=== PATIENT | female | born 1990 | race American Indian/Alaskan Native ===

== ENCOUNTER 2024-12-25 17:11 | Emergency (ER) | payer MEDICAID, SELFPAY ==
[2024-12-25 17:35] VITALS: BP 121/75; PULSE 90; RESP 16; TEMP 36.4; O2SAT 96; BMI 30.7
--- NOTE | 2024-12-25 17:42 | EKG_ITS ---
[facility] Test Date: 2024-12-25 Pat Name: MILAGROS CLARK Department: Room: - Gender: Female Paper Rewinder: : 1990 Requested By: Dimitry Pfeiffer Order Number: [id number] Reading MD: Dimitry Pfeiffer Measurements Intervals [place] Rate: 89 P: 37 NC: 141 QRS: 48 QRSD: 81 T: 54 QT: 352 QTc: 431 Interpretive Statements SINUS RHYTHM No previous ECG available for comparison /store/S0/[id number]
--- NOTE | 2024-12-25 17:42 | XR_ITS ---
Examination: PA lateral chest 2 views TECHNIQUE: Upright PA and lateral chest 2 views Exam date and time: December 25, 2024 1903 hours INDICATIONS: Chest pain today. FINDINGS: Mild opacity in the right middle lobe noticed on the lateral view Normal heart size No pulmonary edema The osseous structures are intact IMPRESSION: Atelectasis versus pneumonia in the right middle lobe, the appearance should be clinically correlated
--- NOTE | 2024-12-25 17:43 | PD.EDRME ---
Rapid Medical Screening Exam RME Arrival date/time: 12/25/24 17:11 34-year-old female with no known medical history presents to the emergency room with a chief complaint of left-sided chest pain that radiates down her left arm and shoulder x 1 day I have greeted and performed a focused initial assessment of this patient. A comprehensive ED assessment and evaluation of the patient, analysis of all test results, and completion of the medical decision making process will be conducted by additional ED providers. Chief Complaint: Chest Pain Vital signs: Vital Signs Temperature 97.6 F 12/25/24 17:35 Pulse Rate 90 12/25/24 17:35 Respiratory Rate 16 12/25/24 17:35 Blood Pressure 121/75 12/25/24 17:35 Pulse Oximetry (%) 96 12/25/24 17:35 Oxygen Delivery Method Room Air 12/25/24 17:35 Vital signs reviewed by provider: Yes
[2024-12-25 18:27] LABS: Basophils # (Auto) 0.1 Thou/mm3 (0.0-0.2); Basophils % (Auto) 0 % (0-2.5); Eosinophils # (Auto) 0.1 Thou/mm3 (0.0-0.5); Eosinophils % (Auto) 1 % (0-10); Hematocrit 41.1 % (36.0-46.0); Hemoglobin 13.8 g/dL (12.0-16.0); Immature Granulocytes % (Auto) 0 % (0-0); Immature Granulocytes Auto 0.04 Thou/mm3 (0.00-0.00); Lymphocytes # (Auto) 2.8 Thou/mm3 (1.0-4.8); Lymphocytes % (Auto) 19 % (10-50); Mean Corpuscular HGB Conc 33.6 g/dl (31.0-37.0); Mean Corpuscular Hemoglobin 30.1 pg (25.0-35.0); Mean Corpuscular Volume 90 fL (80-100); Monocytes # (Auto) 0.8 Thou/mm3 (0.0-0.8); Monocytes % (Auto) 6 % (0-12); Neutrophils # (Auto) 10.7 Thou/mm3 (1.8-7.7); Neutrophils % (Auto) 74 % (37-80); Nucleated Red Blood Cell % 0 /100 WBC (0); Platelet Count 315 Thou/mm3 (140-440); RDW Standard Deviation 41.1 fL (36.4-46.3); Red Blood Count 4.58 Miln/mm3 (4.00-5.20); White Blood Count 14.4 Thou/mm3 (3.6-11.0)
[2024-12-25 18:41] LABS: INR 1.1 (0.9-1.3); Partial Thromboplastin Time 29.4 Seconds (22.0-36.0); Prothrombin Time 12.1 Seconds (9.0-12.2)
[2024-12-25 18:43] LABS: B-Type Natriuretic Peptide < 20 pg/mL (0-100)
[2024-12-25 18:45] LABS: Alanine Aminotransferase 25 U/L (10-49); Albumin, Serum 4.5 gm/dL (3.5-5.0); Albumin/Globulin Ratio 1.5 (1.2-2.2); Alkaline Phosphatase 90 U/L (46-116); Anion Gap 11 (7-16); Aspartate Amino Transferase 21 U/L (0-34); BUN/Creatinine Ratio 17 Ratio (12-20); Bilirubin,Total 0.5 mg/dL (0.3-1.2); Blood Urea Nitrogen 12 mg/dL (9-23); Calcium 9.8 mg/dL (8.3-10.6); Calcium (Corrected) 9.8 mg/dL (8.5-10.1); Carbon Dioxide 25.4 mMol/L (20.0-31.0); Chloride 109 mMol/L (98-107); Creatinine (Component) 0.7 mg/dL (0.6-1.3); Estimated Creatinine Clearance 125.2 mL/min (>60); Glucose 98 mg/dL (74-106); Magnesium 2.1 mg/dL (1.6-2.6); Osmolality,Calculated 288 (275-295); Potassium 3.7 mMol/L (3.4-5.1); Sodium 145 mMol/L (136-145); Total Protein 7.5 gm/dL (5.7-8.2); Troponin I < 0.002 ng/mL (0.0-0.045); eGFR > 60 See Note
--- NOTE | 2024-12-25 18:46 | PD.EDCHEST ---
ED Chest Pain RME/HPI General Chief Complaint: Chest Pain Stated Complaint: CHEST PAIN RADIATING TO LEFT ARM Time Seen by Provider: 12/25/24 18:25 Arrival date/time: 12/25/24 17:11 RME / HPI RME / HPI narrative: 12/25/24 17:11 34-year-old female with no known medical history presents to the emergency room with a chief complaint of left-sided chest pain that radiates down her left arm and shoulder x 1 day I have greeted and performed a focused initial assessment of this patient. A comprehensive ED assessment and evaluation of the patient, analysis of all test results, and completion of the medical decision making process will be conducted by additional ED providers. This section includes all my notes and documentations, including HPI, PE, and ED course. Diogo Earl MD HPI: 34-year-old female here with several days of left-sided chest pain. Has been coughing for about 2 weeks, getting much better. Fever and chills resolved. The pain is worse with deep breathing and certain movement. No other complaints. ROS: All negative except as documented in HPI. Physical Exam: General: Alert and oriented. No acute distress when remaining still. Eyes: Conjunctivae and lids clear. ENT: No nasal congestion. Neck: Supple. Heart: RRR. Lungs: No respiratory distress. Good air movement. No rhonchi, wheezing, rales. Chest: Palpation of the left rib cage laterally and superiorly reproduces her pain. Abdomen: Soft and nontender. Normal bowel sounds. No distension. No rebound or guarding. Back: No CVA tenderness. Skin: Warm and dry. Neuro: Alert and oriented X 3. I reviewed all diagnostic test results. My interpretation of the EKG is sinus rhythm with no acute ST?T changes. My interpretation of the chest x-ray is no acute findings. Blood tests and urine tests unremarkable, including negative troponin. At this point, diagnoses include chest wall pain. Recommended supportive care and more outpatient cardiac workup. Based on my best medical judgment, made decision no further evaluation or treatment indicated at this time. Patient understands and agrees to the discharge instructions customized and printed, see below. Discharge instructions from Dr. Earl: 1. After extensive evaluation, there is no life-threatening condition.? Such as heart attack or pneumothorax (collapsed lung). 2. Your pain is originating from the chest wall and not from an internal organ.? The chest wall has many joints and muscles between the ribs, so sprains and strains are common.??Especially with your coughing for the past couple weeks. 3. Apply ice or heat if helpful.? Tylenol/ibuprofen as needed. Cyclobenzaprine as needed. 4. See a private doctor on for recheck and further care. Ask to review all test results and official radiology reports, to make sure you receive all necessary follow-ups and monitoring. To make sure there is no serious underlying heart condition, ask to help you get more tests for your heart that cannot be done here in the ER.? Such as Holter Monitor (cardiac monitoring at home from a day to even a month), heart stress test (on treadmill or with medication), echocardiogram (imaging of your heart structures), heart catherization (checking for blockages in your heart arteries), and a referral to see a Interlocker Maintainer.? 5. Seek immediate medical care with worsening or with any concerns.?? Diogo Earl MD Related Data Previous Rx's ?Medication ?Instructions ?Recorded cyclobenzaprine 10 mg tablet 10 mg PO Q8H PRN muscle spasm #30 12/25/24 tabs ibuprofen 800 mg tablet 800 mg PO Q8H PRN pain #30 tabs 12/25/24 Allergies Allergy/AdvReac Type Severity Reaction Status Date / Time Penicillins Allergy Intermediate RASH ALL Verified 12/25/24 17:14 OVER Course Quality Measures none Orders Category Date Time Status EKG (ED ONLY) *Do not use* NOW Care 12/25/24 17:42 Completed EKG (ED Only) Stat Exams 12/25/24 17:42 Draft XR chest 2V Stat Exams 12/25/24 17:42 Completed B-Type Natriuretic Peptide Stat Lab 12/25/24 18:09 Completed CBC Stat Lab 12/25/24 18:09 Completed Comprehensive Metabolic Panel Stat Lab 12/25/24 18:09 Results Drug Screen,Urine Stat Lab 12/25/24 18:50 Completed LDH (Lactate Dehydrogenase) Stat Lab 12/25/24 18:09 Results Magnesium Stat Lab 12/25/24 18:09 Results Partial Thromboplastin Time Stat Lab 12/25/24 18:09 Completed Prothrombin Time with INR Stat Lab 12/25/24 18:09 Completed Troponin I Stat Lab 12/25/24 18:09 Results Urinalysis Stat Lab 12/25/24 18:50 Completed Vital Signs Vital signs: Vital Signs Temperature 97.6 F 12/25/24 17:35 Pulse Rate 90 12/25/24 17:35 Respiratory Rate 16 12/25/24 17:35 Blood Pressure 121/75 12/25/24 17:35 Pulse Oximetry (%) 96 12/25/24 17:35 Oxygen Delivery Method Room Air 12/25/24 17:35 Chest Pain Patient data External records reviewed:: None Clinical information provided by:: patient Social determinants that could affect healthcare access:: none Patient has the following chronic illnesses:: None How is presenting disease/condition affected by chronic disease/condition?: no chronic disease Evaluation data The following diagnostics were reviewed and interpreted by me:: lab results, radiology exam(s) and EKG tracing(s) Lab and/or radiology exams considered but not ordered:: None Interpretation Summary: Normal diagnostics Medications / Prescriptions Medications or Prescriptions considered but not ordered:: None Medication administrations:: None Consultations Consultation(s) initiated? (list below): No Diagnosis Chest Pain Differential Diagnosis: fracture of rib, pneumothorax, stable angina, unstable angina pectoris, atypical chest pain, st elevation myocardial infarction, costochondritis and chest pain Most likely diagnosis given after review of the tests above:: Musculoskeletal chest wall pain Admission Indicated Admission indicated?: not indicated Explain why admission is indicated or not indicated:: There was no indication for admission. Admission Request Was there a request for admission?: No Disposition Plan Disposition Plan: Discharge Discharge Attestation Discharge Attestation: The patient and all family members were given an opportunity to ask questions and understood the discharge instructions. Discharge instructions specifically effects, indications for sooner follow up or return to the emergency department, and the expected course of current diagnosis. Patient condition: Stable Discharge Plan Plan Patient Disposition: HOME (Self Care) Prescriptions/Referrals Prescriptions/Med Rec: New cyclobenzaprine 10 mg tablet 10 mg PO Q8H PRN (Reason: muscle spasm) Qty: 30 0RF ibuprofen 800 mg tablet 800 mg PO Q8H PRN (Reason: pain) Qty: 30 0RF Referrals: No Primary/Family,Physician [Primary Care Provider] - In 1 week Problem List Clinical Impression: Chest pain Patient/Caregiver Discharge Instructions Discharge Activity: activity as tolerated Education Materials: ED Chest Pain, Noncardiac Additional Instructions: Discharge instructions from Dr. Earl: 1. After extensive evaluation, there is no life-threatening condition.? Such as heart attack or pneumothorax (collapsed lung). 2. Your pain is originating from the chest wall and not from an internal organ.? The chest wall has many joints and muscles between the ribs, so sprains and strains are common.??Especially with your coughing for the past couple weeks. 3. Apply ice or heat if helpful.? Tylenol/ibuprofen as needed. Cyclobenzaprine as needed. 4. See a private doctor on for recheck and further care. Ask to review all test results and official radiology reports, to make sure you receive all necessary follow-ups and monitoring. To make sure there is no serious underlying heart condition, ask to help you get more tests for your heart that cannot be done here in the ER.? Such as Holter Monitor (cardiac monitoring at home from a day to even a month), heart stress test (on treadmill or with medication), echocardiogram (imaging of your heart structures), heart catherization (checking for blockages in your heart arteries), and a referral to see a Interlocker Maintainer.? 5. Seek immediate medical care with worsening or with any concerns.?? Print Language: British Stand Alone Forms: Nerissa Award Info., Patient Portal Info Letter
[2024-12-25 18:54] LABS: Collection Type, Urine Clean Catch
[2024-12-25 19:01] LABS: Bacteria,Urine Rare; Bilirubin,Urine Negative (Negative); Blood,Urine Trace (Negative); Calcium Oxalate Crystals,Urine 4+; Clarity,Urine Turbid (Clear/Hazy); Color,Urine Yellow (Lt Yel-Yel); Glucose, Urine Negative (Negative); Ketones,Urine Negative (Negative); Leukocyte Esterase,Urine Negative (Negative); Nitrite,Urine Negative (Negative); Protein,Urine 1+ (Neg - Trace); RBC,Urine 1 /hpf (0-3); Specific Gravity,Urine 1.034 (1.001-1.035); Squamous Epithelial Cell,Urine < 1 /hpf (0-5); WBC,Urine < 1 /hpf (0-5)
[2024-12-25 19:07] LABS: Amphetamine/Methamp Scrn,U Positive (Negative); Barbiturate Screen,Urine Negative (Negative); Benzodiazepines Screen,Urine Negative (Negative); Benzoylecgonine Screen, Ur Negative (Negative); Fentanyl Screen,Urine Negative (Negative); Opiate Screen,Urine Negative (Negative); THC Screen,Urine Negative (Negative)
[2024-12-25 19:23] VITALS: RESP 18
[2024-12-25 19:34] LABS: LDH (Lactate Dehydrogenase) 231 U/L (120-246)
== END 2024-12-25 19:25 | disposition home or self-care (01) ==
PROVIDERS: Nurse Practitioner Family; Emergency Provider Emergency Medicine
DX: R07.89 Other chest pain (principal)
CPT/HCPCS: 36415; 71046; 80053; 80307; 81001; 83615; 83735; 83880; 84484; 85025; 85610; 85730; 93005; 99283

== ENCOUNTER 2025-01-14 19:05 | Emergency (ER) | payer MEDICAID, SELFPAY ==
[2025-01-14 19:07] VITALS: BMI 29.2
[2025-01-14 19:19] VITALS: BP 108/72; PULSE 91; RESP 18; TEMP 36.8; O2SAT 99
--- NOTE | 2025-01-14 19:21 | PD.EDRME ---
Rapid Medical Screening Exam RME Arrival date/time: 01/14/25 19:05 Chief Complaint: Seizure Time Seen by Provider: 01/14/25 19:12 Vital signs: Vital Signs Temperature 98.2 F 01/14/25 19:19 Pulse Rate 91 01/14/25 19:19 Respiratory Rate 18 01/14/25 19:19 Blood Pressure 108/72 01/14/25 19:19 Pulse Oximetry (%) 99 01/14/25 19:19 Oxygen Delivery Method Room Air 01/14/25 19:19 RME Narrative: Witnessed seizure lasting 3 minutes today. Also had 2 seizures two days ago and 2 seizures last month. Hx epilepsy but stopped taking depakote at 12yo. A&Ox3 in triage.
--- NOTE | 2025-01-14 19:23 | XR_ITS ---
Examination: CT brain head without contrast. 2-D sagittal coronal reconstructions Date and time of exam:January 14, 2025 and 193 hours INDICATIONS: Seizure today CTDI: vol (mGy):49.7 DLP: (mGycm):1012 Technique: Multiple CT axial sections of the brain have been obtained, 5 mm slice thickness. Contrast has not been administered. 2-D sagittal, coronal reconstructions have been obtained Low dose protocols were performed. One or more of the following dose reduction techniques were used; automated exposure control, adjustment of the mA and/or KV according to patient size, use of iterative reconstruction technique. Findings: No significant ventricular enlargement. Intra-axial or extra-axial hemorrhage density is not seen. No mass effect or midline shift Basal cisterns are not remarkable. Fourth ventricle is midline. Cranial vault intact. Impression: Negative for acute hemorrhage, mass effect or midline shift Consider elective brain MRI follow-up, pre and postcontrast, seizure protocol
[2025-01-14 20:26] LABS: Basophils # (Auto) 0.1 Thou/mm3 (0.0-0.2); Basophils % (Auto) 1 % (0-2.5); Eosinophils # (Auto) 0.1 Thou/mm3 (0.0-0.5); Eosinophils % (Auto) 1 % (0-10); Hematocrit 43.9 % (36.0-46.0); Hemoglobin 14.8 g/dL (12.0-16.0); Immature Granulocytes % (Auto) 0 % (0-0); Immature Granulocytes Auto 0.04 Thou/mm3 (0.00-0.00); Lymphocytes # (Auto) 2.9 Thou/mm3 (1.0-4.8); Lymphocytes % (Auto) 27 % (10-50); Mean Corpuscular HGB Conc 33.7 g/dl (31.0-37.0); Mean Corpuscular Hemoglobin 30.6 pg (25.0-35.0); Mean Corpuscular Volume 91 fL (80-100); Monocytes # (Auto) 0.6 Thou/mm3 (0.0-0.8); Monocytes % (Auto) 5 % (0-12); Neutrophils # (Auto) 7.2 Thou/mm3 (1.8-7.7); Neutrophils % (Auto) 66 % (37-80); Nucleated Red Blood Cell % 0 /100 WBC (0); Platelet Count 281 Thou/mm3 (140-440); RDW Standard Deviation 43.4 fL (36.4-46.3); Red Blood Count 4.83 Miln/mm3 (4.00-5.20); White Blood Count 10.9 Thou/mm3 (3.6-11.0)
[2025-01-14 20:32] LABS: Alanine Aminotransferase 23 U/L (10-49); Albumin, Serum 4.9 gm/dL (3.5-5.0); Albumin/Globulin Ratio 1.7 (1.2-2.2); Alkaline Phosphatase 81 U/L (46-116); Anion Gap 7 (7-16); Aspartate Amino Transferase 20 U/L (0-34); BUN/Creatinine Ratio 19 Ratio (12-20); Bilirubin,Total 0.4 mg/dL (0.3-1.2); Blood Urea Nitrogen 13 mg/dL (9-23); Calcium 9.6 mg/dL (8.3-10.6); Calcium (Corrected) 9.6 mg/dL (8.5-10.1); Carbon Dioxide 27.2 mMol/L (20.0-31.0); Chloride 104 mMol/L (98-107); Creatinine (Component) 0.7 mg/dL (0.6-1.3); Estimated Creatinine Clearance 130.8 mL/min (>60); Globulin 2.9 gm/dL (2.3-3.5); Glucose 90 mg/dL (74-106); Osmolality,Calculated 275 (275-295); Potassium 3.5 mMol/L (3.4-5.1); Sodium 138 mMol/L (136-145); Total Protein 7.8 gm/dL (5.7-8.2); eGFR > 60 See Note
--- NOTE | 2025-01-14 21:22 | PD.EDSEIZ ---
ED Seizures RME/HPI General Chief Complaint: Seizure Stated Complaint: POST-ICTAL Time Seen by Provider: 01/14/25 19:12 Source: patient (Today) Arrival date/time: 01/14/25 19:05 Mode of arrival: ambulatory Limitations: no limitations RME / HPI RME / HPI Narrative: Witnessed seizure lasting 3 minutes today. Also had 2 seizures two days ago and 2 seizures last month. Hx epilepsy but stopped taking depakote at 12yo. A&Ox3 in triage[address] DR. GAYLE?S MAIN ED EVALUATION: 34 year-old male/female with history of seizure disorder since age of infant presenting to the emergency department via private auto/EMS who is presenting for chief/stated complaint of seizure. Last Seizure 2 days ago and prior to that 3 years. Pt stopped Depakote at age 12. Patient denies alcohol or drug use last 24 hours. She has not been under stress. The patient states normally she has been able to control his seizures by lying on the floor on a cool floor. Seizure exacerabt<del>e</del>d with anxiety or hot weather. By report lasted 3 mins. Associated symptoms include: Patient denies () or any other associated symptoms or medical complaints. Review of the record shows: - PMH: Seizure Disorder - PSH: Lypoma, T &A - Social history: Denies drug use, non-smoker, nondrinker. - Current medications: None PCP is Dr. Toure in [place] complaint: seizure Onset (ago): minute(s) (3) Witnessed: no Trauma: No Seizure History: known seizure disorder Place: home Possible Precipitating Event: none Associated symptoms: denies other symptoms Treatments prior to arrival: none Related Data Previous Rx's ?Medication ?Instructions ?Recorded cyclobenzaprine 10 mg tablet 10 mg PO Q8H PRN muscle spasm #30 12/25/24 tabs ibuprofen 800 mg tablet 800 mg PO Q8H PRN pain #30 tabs 12/25/24 levetiracetam 500 mg tablet 500 mg PO BID #60 tabs 01/14/25 (Keppra) Allergies Allergy/AdvReac Type Severity Reaction Status Date / Time Penicillins Allergy Intermediate RASH ALL Verified 01/14/25 19:10 OVER Review of Systems Review of Systems Systems Reviewed: All systems reviewed, normal except as documented Past Medical History Past Medical History NEUROLOGIC: Positive Seizures Surgical History SURGICAL: Positive Adenoidectomy Social History SMOKING STATUS: Never smoker SUBSTANCE USE: does not use ED Exam Narrative Physical exam: General: Non-toxic, well appearing, in no acute distress, and appears state age and well developed and well nourished. Vital signs: Normal. Head: Normocephalic and atraumatic. Eyes: Aproptotic, extraocular movements intact, and pupils equally round and reactive to light. Nose: Nares without evidence of rhinorrhea. Mouth: No tongue lacerations. Neck: Supple without menigismus without lympadenopathy or tenderness. Heart: Regular rate and rhythm without murmur, gallops, or rubs. Lungs: Clear to auscultation without wheezing, rales, or rhonchi. Abdomen: Soft, nontender, no masses, and not distended. Back: No costovertebral angle tenderness. Neurologic: Alert and oriented to person, place, and time. Cranial nerves 2-12 grossly intact. Sensation to light touch intact in all extremities. Strength 5/5 bilaterally. Negative drift and romberg. No dysdiadochokinesia. Normal finger to nose, heel to pepper, gait, and heel to toe. Gait normal. Extremities: no cyanosis or edema. No trauma. Skin: no rashes, ecchymosis, or lesions. General Limitations: Present no limitations Course Quality Measures none Orders Category Date Time Status CT head/brain wo con Stat Exams 01/14/25 19:23 Completed CBC Stat Lab 01/14/25 20:04 Completed CMP [Comprehensive Metabolic Panel] Stat Lab 01/14/25 20:04 Completed Drug Screen,Urine Stat Lab 01/14/25 22:20 Completed HCG Qualitative,Urine Stat Lab 01/14/25 22:04 Completed UA [Urinalysis] Stat Lab 01/14/25 22:04 Completed levETIRAcetam [Keppra] Med 01/14/25 22:23 Discontinued 1,000 mg PO X1 ONE Reevaluation(s) Reevaluation #1: Dr. GALVEZ neurologist Dr. Braun made aware of the patient?s HPI, PMHx, lab and/or radiology results. Treatment plan was discussed. Recommends Keppra twice daily. Time: 22:00 Vital Signs Vital signs: Vital Signs Temperature 98.2 F 01/14/25 19:19 Pulse Rate 91 01/14/25 19:19 Respiratory Rate 18 01/14/25 19:19 Blood Pressure 108/72 01/14/25 19:19 Pulse Oximetry (%) 99 01/14/25 19:19 Oxygen Delivery Method Room Air 01/14/25 19:19 Seizure MDM Narrative MDM Narrative:: 34-year-old female with known seizure disorder wanted to have up until 12 years old when she stopped taking her Depakote. The patient has not followed by neurology since. Patient now returns emergency department with seizure x 248 hours ago and again today. Differential diagnosis includes seizure disorder, electrolyte abnormality, drug use, recurrence of her seizures. EDC: CT scan does not show acute bleed. Glucose is 90. Otherwise other electrolytes are normal. Teleneurology consult is obtained and their recommendations include: Keppra twice daily. Lab work returns normal and neurology called for opinion on the current state of medical management of this patient and felt as though the patient could be followed as an outpatient, however the patient does not have an outpatient neurologist. Plan to follow up with neurology for possible medication adjustment. The patient was given strict return precautions and was comfortable with the plan Re-eval: Patient with no active seizure activity here in the emergency department. Teleneurologist Dr. Braun saw the patient here in the emergency department. Telemetry. Recommends Keppra 500 twice daily and follow-up with outpatient neurology. Return to the ER for headache, fever, difficulty walking, or other concerns. Follow up in your primary care physician?s or neurologist's office within the next 2 to 4 days for reevaluation. Patient made very clear that she cannot drive. The patient will need to follow-up with outpatient neurology and referral was given. She will not be able to drive a car until she she is cleared by neurologist and/or is off antiseizure medicines for 6 months. This was verbalized to the patient and understood. Patient data External records reviewed:: [facility] previous records (Prior ED records from 12/25/24 reviewed. Patient last seen for chest pain.) Clinical information provided by:: patient Social determinants that could affect healthcare access:: none Patient has the following chronic illnesses:: Seizures How is presenting disease/condition affected by chronic disease/condition?: exacerbated by Evaluation data The following diagnostics were reviewed and interpreted by me:: lab results (Fingerstick is normal. At 90. ) and radiology exam(s) Lab and/or radiology exams considered but not ordered:: None Interpretation Summary: CT brain head without contrast. Findings: No significant ventricular enlargement. Intra-axial or extra-axial hemorrhage density is not seen. No mass effect or midline shift Basal cisterns are not remarkable. Fourth ventricle is midline. Cranial vault intact. Impression: Negative for acute hemorrhage, mass effect or midline shift Consider elective brain MRI follow-up, pre and postcontrast, seizure protocol LABS: White count is 10. Normal. Hemoglobin 14 and normal. Platelets 21 and normal. Electrolytes are reviewed and normal. Glucose is 90. Urinalysis shows no evidence of infection. Amphetamine positive. Medications / Prescriptions Medications or Prescriptions considered but not ordered:: None Medication administrations:: Medication Administration History Discontinued Medications Levetiracetam (Levetiracetam 250 Mg Tablet) 1,000 mg PO X1 ONE Stop: 01/14/25 22:24 Last Admin: 01/14/25 22:28 Dose: 1,000 mg Documented By: BD See above if any Consultations Consultation(s) initiated? (list below): Yes Consultation #1 (Physician, Specialty, Details): Dr. Dano rodriguez, Time: 21:53 Consultation #2 (Physician, Specialty, Details): Spoke with Dr. Braun, the Teleneurologist. Will give 1,000 KEPPRA. Time: 22:22 Diagnosis Seizure Differential Diagnosis: other (see mdm) Most likely diagnosis given after review of the tests above:: Generalized seizure, Amphetamine use Admission Indicated Admission indicated?: not indicated Admission Request Was there a request for admission?: No Disposition Plan Disposition Plan: Discharge Discharge Attestation Discharge Attestation: The patient and all family members were given an opportunity to ask questions and understood the discharge instructions. Discharge instructions specifically effects, indications for sooner follow up or return to the emergency department, and the expected course of current diagnosis. Patient condition: Stable Discharge Plan Plan Patient Disposition: HOME (Self Care) Patient condition on transfer: Stable Prescriptions/Referrals Prescriptions/Med Rec: New levetiracetam [Keppra] 500 mg tablet 500 mg PO BID Qty: 60 1RF No Action cyclobenzaprine 10 mg tablet 10 mg PO Q8H PRN (Reason: muscle spasm) Qty: 30 0RF ibuprofen 800 mg tablet 800 mg PO Q8H PRN (Reason: pain) Qty: 30 0RF Referrals: [facility] [Other] - In 1 week (to get an appointment as an outpatient) Rufino Willingham MD [Physician] - In 1 week (Call for an appointment in 1 week.) Problem List Clinical Impression: Generalized seizure, Amphetamine abuse Patient/Caregiver Discharge Instructions Education Materials: ED Drug Abuse, ED Seizure, Recurrent (Adult) Additional Instructions: 1. Stop doing drugs. Since you have not had recurrence of your seizure you will not be able to drive. You cannot drive until you are off seizure medications for 6 months and/or when you are cleared by a neurologist. 2. If medication has been prescribed for your condition, fill the prescription as soon as possible and follow the directions on the medication. 3. RETURN AT ONCE TO THE EMERGENCY DEPARTMENT if you have any problems or concerns. These include but are not limited to fever, worsening pain(belly, chest, head, etc?), worsening shortness of breath, uncontrollable bleeding, inability to tolerate food and water, or any condition that makes you question your well-being. Also, if your symptoms do not improve in the next 12-24 hours, return to the ER or seek medical care immediately. 4. Be sure to follow up with your regular physician or specialist as instructed at discharge as this is the best way to ensure that you receive the very best of care. If you do not have a primary care physician, please contact a physician group and make an appointment. 5. Please visit [employer] for coupons regarding your prescriptions. It is a free service for you to use and can help reduce the cost of your medication. We would like to thank you for coming today and our hope is that we served you and your family well during your stay Print Language: Greenlandic Stand Alone Forms: Nerissa Award Info., Patient Portal Info Letter
[2025-01-14 21:50] VITALS: BP 121/69; PULSE 89; RESP 17; TEMP 37.2; O2SAT 97
--- NOTE | 2025-01-14 22:18 | PC.NURSE ---
SARAH CONSULT WITH PT
[2025-01-14] MEDS: levETIRAcetam 250 MG TABLET 1000 MG PO (22:28)
[2025-01-14 22:32] LABS: Collection Type, Urine Clean Catch; RBC,Urine 0 /hpf (0-3)
[2025-01-14 23:00] LABS: Bacteria,Urine 2+; Bilirubin,Urine Negative (Negative); Blood,Urine Negative (Negative); Clarity,Urine Turbid (Clear/Hazy); Color,Urine Yellow (Lt Yel-Yel); Glucose, Urine Negative (Negative); Ketones,Urine Negative (Negative); Leukocyte Esterase,Urine Positive (Negative); Nitrite,Urine Positive (Negative); PH,Urine 6.5 (5.0-7.0); Protein,Urine 1+ (Neg - Trace); Specific Gravity,Urine 1.033 (1.001-1.035); Squamous Epithelial Cell,Urine 10 /hpf (0-5); WBC,Urine 10 /hpf (0-5)
[2025-01-14 23:02] VITALS: BP 122/62; PULSE 92; RESP 16; TEMP 36.9; O2SAT 100
--- NOTE | 2025-01-14 23:11 | PD.TNEURO ---
Tele Neuro Consultation Consultation Date 01/14/25 Most Recent Vital Signs Last Vital Signs Temp 98.4 F 01/14/25 23:02 Pulse 92 01/14/25 23:02 Resp 16 01/14/25 23:02 BP 122/62 01/14/25 23:02 Pulse Ox 100 01/14/25 23:02 O2 Del Method Room Air 01/14/25 23:02 Consultation Narrative [facility] TeleNeurology Consult Services Stat Consult Patient Name: Emma Garza Date of : 1990 Identification Number: Date of Service: 01/14/2025 21:46:05 Diagnosis: ? G40.89 - Other seizures Impression Seizures Patient needs to be back on an antiepileptic agent would recommend Keppra 500 mg twice daily Outpatient MRI of the brain with and without contrast and EEG Outpatient follow-up with neurology Driving restrictions per state law Okay for discharge Recommendations: Our recommendations are outlined below. Nursing Recommendations : Maintain Euglycemia and Euthermia Neuro checks q1-2 hrs during ICU stay if critical Once stable neuro checks q 4hrs Disposition : Neurology will sign off. Reconsult if Needed. Outpatient Neurology follow up in 3-6 weeks Advanced Imaging: Advanced Imaging Deferred because: Stroke not suspected with clinical presentation and exam Metrics: Dispatch Time: 01/14/2025 21:43:30 Callback Response Time: 01/14/2025 21:46:31 Primary Provider Notified of Diagnostic Impression and Management Plan on: 01/14/2025 23:08:46 CT HEAD: As Per Radiologist CT Head Showed No Acute Hemorrhage or Acute Core Infarct Reviewed Chief Complaint: Seizures History of Present Illness: Patient is a 34 year old Female. Confirmed STAT consult with JERMAN BENJAMIN 34 F Complaint: Pt to ED for recent seizures the last 2 days. Most recent one being today lasting 3 min- pt back at baseline. Eval and rec for seizure medication. Hx. Seizure d/o imaging CTH-negative Patient actually has had seizures since 1 years of age When she was younger she was Depakote but is actually been off of seizure medication for more than 10 years With her seizures but never any urinary incontinence or tongue biting or generalized tonic-clonic activity she just shakes she states She has had 2 of these episodes in the past few weeks Past Medical History: ? Seizures ? There is no history of Hypertension ? There is no history of Diabetes Mellitus ? There is no history of Hyperlipidemia ? There is no history of Atrial Fibrillation ? There is no history of Coronary Artery Disease ? There is no history of Stroke ? There is no history of Covid-19 ? There is no history of Migraine Headaches ? There is no history of Dementia/MCI Medications: No Anticoagulant use No Antiplatelet use Reviewed EMR for current medications Allergies: Reviewed Social History: Smoking: No Alcohol Use: No Drug Use: No Family History: There is no family history of premature cerebrovascular disease pertinent to this consultation ROS : 14 Points Review of Systems was performed and was negative except mentioned in HPI. Past Surgical History: There Is No Surgical History Contributory To Today?s Visit Examination: BP(122/62), Pulse(92), Blood Glucose(98) Neuro Exam: General: Alert,Awake, Oriented to Time, Place, Person Speech: Fluent: Language: Intact: Face: Symmetric: Facial Sensation: Intact: Visual Gann: Intact: Extraocular Movements: Intact: Motor Exam: No Drift: Sensation: Intact: Coordination: Intact: Spoke with : JADE Bose This consult was conducted in real time using interactive audio and video technology. Patient was informed of the technology being used for this visit and agreed to proceed. Patient located in hospital and provider located at home/office setting. Patient is being evaluated for possible acute neurologic impairment and high probability of imminent or life - threatening deterioration.I spent total of 35 minutes providing care to this patient, including time for face to face visit via telemedicine, review of medical records, imaging studies and discussion of findings with providers, the patient and / or family. Dr Kaiden [facility] For Inpatient follow-up with [facility] physician please call [facility] at . As we are not an outpatient service for any post hospital discharge needs please contact the hospital for assistance. If you have any questions for the [facility] physicians or need to reconsult for clinical or diagnostic changes please contact us via [facility] at .
[2025-01-14 23:13] LABS: Amphetamine/Methamp Scrn,U Positive (Negative); Barbiturate Screen,Urine Negative (Negative); Benzodiazepines Screen,Urine Negative (Negative); Benzoylecgonine Screen, Ur Negative (Negative); Fentanyl Screen,Urine Negative (Negative); Opiate Screen,Urine Negative (Negative); THC Screen,Urine Negative (Negative)
[2025-01-14 23:14] LABS: HCG Qualitative,Urine Negative
== END 2025-01-14 23:16 | disposition home or self-care (01) ==
PROVIDERS: Physician Assistant; Emergency Provider Emergency Medicine
DX: G40.909 Epilepsy, unspecified, not intractable, without status epilepticus (principal)
CPT/HCPCS: 36415; 70450; 80053; 80307; 81001; 81025; 85025; 99284; A9270

== ENCOUNTER 2025-02-18 09:55 | Emergency (ER) | payer MEDICAID, SELFPAY ==
[2025-02-18 09:56] VITALS: BMI 34.0
[2025-02-18 10:15] VITALS: BP 136/76; PULSE 99; RESP 18; TEMP 37.1; O2SAT 95; BMI 31.7
--- NOTE | 2025-02-18 10:33 | XR_ITS ---
Examination: CT brain head without contrast. 2-D sagittal coronal reconstructions Date and time of exam:February 18, 2025, 1041 hrs. Comparison January 14, 2025 Indications: Onset seizure this morning CTDI: vol (mGy):50 DLP: (mGycm):982 Technique: Multiple CT axial sections of the brain have been obtained, 5 mm slice thickness. Contrast has not been administered. 2-D sagittal, coronal reconstructions have been obtained Low dose protocols were performed. One or more of the following dose reduction techniques were used; automated exposure control, adjustment of the mA and/or KV according to patient size, use of iterative reconstruction technique. Findings: No significant ventricular enlargement. Intra-axial or extra-axial hemorrhage density is not seen. No mass effect or midline shift Basal cisterns are not remarkable. Fourth ventricle is midline. Cranial vault intact. Impression: Negative for acute hemorrhage, mass effect or midline shift Consider elective brain MRI follow-up, seizure protocol
--- NOTE | 2025-02-18 10:34 | PD.EDHEAD ---
ED Head Injury RME/HPI General Chief complaint: Seizure Stated complaint: I JUST HAD A SEIZURE X1 HR AGO Time Seen by Provider: 02/18/25 10:06 Arrival date/time: 02/18/25 09:55 This is a 34-year-old female that has a history of epilepsy and reports she had a seizure today. Per notes patient has a history of amphetamine use. Patient states that she does take her medications. Patient reports that she takes Keppra twice a day. Patient reports that she had a seizure this morning and hit the left side of her protestant and has a hematoma to this area. Patient also complains of biting her right cheek. Related Data Previous Rx's ?Medication ?Instructions ?Recorded cyclobenzaprine 10 mg tablet 10 mg PO Q8H PRN muscle spasm #30 12/25/24 tabs ibuprofen 800 mg tablet 800 mg PO Q8H PRN pain #30 tabs 12/25/24 levetiracetam 500 mg tablet 500 mg PO BID #60 tabs 01/14/25 (Keppra) Allergies Allergy/AdvReac Type Severity Reaction Status Date / Time Penicillins Allergy Intermediate RASH ALL Verified 02/18/25 09:58 OVER Course Orders Category Date Time Status CT head/brain wo con Stat Exams 02/18/25 10:33 Completed Vital Signs Vital signs: Vital Signs Temperature 98.7 F 02/18/25 10:15 Pulse Rate 99 02/18/25 10:15 Respiratory Rate 18 02/18/25 10:15 Blood Pressure 136/76 H 02/18/25 10:15 Pulse Oximetry (%) 95 02/18/25 10:15 Oxygen Delivery Method Room Air 02/18/25 10:15 Head Injury MDM Narrative MDM Narrative:: ct head: Findings: No significant ventricular enlargement. Intra-axial or extra-axial hemorrhage density is not seen. No mass effect or midline shift Basal cisterns are not remarkable. Fourth ventricle is midline. Cranial vault intact. Impression: Negative for acute hemorrhage, mass effect or midline shift Consider elective brain MRI follow-up, seizure protocol CT negative. Patient told to use ibuprofen and Tylenol for pain. Follow-up with primary provider in 1 to 2 days. Come back to the emergency room symptoms change or worsen if patient is continuing to have more seizures recently may need to have Keppra dose increased. I did talk to patient about this. Went to discharge patient underwent Discharge Plan Plan Patient Disposition: HOME (Self Care) Patient condition on transfer: Stable Prescriptions/Referrals Prescriptions/Med Rec: No Action cyclobenzaprine 10 mg tablet 10 mg PO Q8H PRN (Reason: muscle spasm) Qty: 30 0RF ibuprofen 800 mg tablet 800 mg PO Q8H PRN (Reason: pain) Qty: 30 0RF levetiracetam [Keppra] 500 mg tablet 500 mg PO BID Qty: 60 1RF Referrals: No Primary/Family,Physician [Primary Care Provider] - In 1 week Problem List Clinical Impression: Seizure disorder, Head injury Patient/Caregiver Discharge Instructions Discharge Activity: activity as tolerated Education Materials: ED Head Injury (Adult) Additional Instructions: Follow up with primary provider in 1-2 days. Come back to ED if symptoms change or worsen. Discussed with primary doctor about possibly increasing Keppra dose if continues to have seizures. Print Language: Italian Stand Alone Forms: Nerissa Award Info., Patient Portal Info Letter PA/VITO Supervising Physician PA/CEMENT SIDE LASTER Supervising Physician: cat
== END 2025-02-18 14:11 | disposition home or self-care (01) ==
PROVIDERS: Emergency Provider Emergency Medicine
DX: G40.909 Epilepsy, unspecified, not intractable, without status epilepticus (principal); S09.90XA Unspecified injury of head, initial encounter; X58.XXXA Exposure to other specified factors, initial encounter
CPT/HCPCS: 70450; 99284